=== PATIENT | male | born 1980 | race Caucasian/White ===

== ENCOUNTER 2019-05-27 19:16 | Inpatient (IN) | payer MEDICAID ==
[2019-05-27] MEDS ORDERED: AMOXICILLIN TR/POT CLAVULANATE 500-125 MG TAB PO ONE (20:44)
[2019-05-27] MEDS ORDERED: OXYCODONE-ACETAMINOPHEN 5-325 MG TABLET PO ONE (20:50)
[2019-05-27] MEDS ORDERED: AMPICILLIN SOD/SULBACTAM 3 GM VIAL IV ONE (20:53)
--- NOTE | 2019-05-27 20:58 | ER Document Report ---
ED Medical Screen (RME) - General Chief Complaint: Cat Bite Stated Complaint: FOOT INJURY Time Seen by Provider: 05/27/19 20:38 Notes: 38-year-old male presents the emergency department with chief complaint of cat bite on his right foot that occurred on Tuesday. He said he does only cat but it is a rescue cat and the cat has been mingling with strays as of late. The cat was startled and attacked patient and patient was bit twice, one over the anterior lateral aspect of the right foot just dorsal to the lateral malleolus and another one just posterior to the lateral malleolus. Patient also has significant scratches all over his foot. There is significant erythema and his foot is swollen and his calf is swollen as well. Patient is concerned because the swelling in the calf started today. Patient has a temperature of 100.9 and has been persistently tachycardic at 102-104. Patient is able to move his foot but with great difficulty. EXAM: Overall well-appearing does not seem toxic. Right foot with edema that extends to just below the knee, significant redness around the area of the puncture wounds and warm to the touch. There are several healing scratches all over his right foot and on his bilateral calves. I have greeted and performed a rapid initial assessment of this patient. A comprehensive ED assessment and evaluation of the patient, analysis of test results and completion of medical decision making process will be conducted by an additional ED providers. TRAVEL OUTSIDE OF THE [place] IN LAST 30 DAYS: No - Related Data Allergies/Adverse Reactions: No Known Allergies Allergy (Verified 01/03/16 13:56) Past Medical History - Social History Frequency of alcohol use: None Drug Abuse: None - Past Medical History Cardiac Medical History: Reports: Hx Hypertension Endocrine Medical History: Reports: Hx Diabetes Mellitus Type 2. Denies: Hx Diabetes Mellitus Type 1 Renal/ Medical History: Denies: Hx Peritoneal Dialysis Musculoskeltal Medical History: Reports Hx Musculoskeletal Trauma Past Surgical History: Reports: Hx Adenoidectomy, Hx Orthopedic Surgery - carpal tunel, Hx Tonsillectomy - T&A - Immunizations Immunizations up to date: Yes Hx Diphtheria, Pertussis, Tetanus Vaccination: Yes - 08/07/2012 Physical Exam - Vital signs Vitals: Temp Pulse Resp BP Pulse Ox 98.2 F 102 H 18 153/93 H 100 05/27/19 19:21 05/27/19 19:21 05/27/19 19:21 05/27/19 19:21 05/27/19 19:21 Course - Vital Signs Vital signs: Temp Pulse Resp BP Pulse Ox 98.2 F 102 H 18 153/93 H 100 05/27/19 19:21 05/27/19 19:21 05/27/19 19:21 05/27/19 19:21 05/27/19 19:21
[2019-05-27] MEDS ORDERED: MORPHINE SULFATE 10 MG/ML INJ ONE (21:19)
[2019-05-27 21:23] LABS: ABSOLUTE BASOPHILS # (AUTO) 0.2 10^3/uL (0.0-0.2); ABSOLUTE EOSINOPHILS # (AUTO) 0.2 10^3/uL (0.0-0.6); ABSOLUTE LYMPHOCYTES (AUTO) 4.6 10^3/uL (0.5-4.7); ABSOLUTE MONOCYTES (AUTO) 0.8 10^3/uL (0.1-1.4); ABSOLUTE NEUT (AUTO) 7.6 10^3/uL (1.7-8.2); BASOPHILS % (AUTO) 1.2 % (0-2); EOSINOPHILS % (AUTO) 1.5 % (0-6); HEMATOCRIT 45.6 % (37.9-51.0); HEMOGLOBIN 15.2 g/dL (13.5-17.0); LYMPHOCYTES % (AUTO) 34.8 % (13-45); MEAN CORPUSCULAR HEMOGLOBIN 27.8 pg (27.0-33.4); MEAN CORPUSCULAR HGB CONC 33.4 g/dL (32.0-36.0); MEAN CORPUSCULAR VOLUME 83 fl (80-97); MONOCYTES % (AUTO) 5.7 % (3-13); PLATELET COUNT 297 10^3/uL (150-450); RED BLOOD COUNT 5.47 10^6/uL (4.35-5.55); RED CELL DISTRIBUTION WIDTH 13.2 % (11.5-14.0); SEGMENTED NEUTROPHILS % (AUTO) 56.8 % (42-78); TOTAL CELLS COUNTED % (AUTO) 100 %; WHITE BLOOD COUNT 13.3 10^3/uL (4.0-10.5)
--- NOTE | 2019-05-27 22:07 | ER Document Report ---
ED Animal Bite - General Chief Complaint: Cat Bite Stated Complaint: FOOT INJURY Time Seen by Provider: 05/27/19 20:38 Notes: Patient is a 38-year-old male that comes to the emergency department for chief complaint of right foot pain and swelling after a cat bite that occurred on Tuesday, he states he cleaned the area, initially he did not notice any abnormality but over the past day he has had significant increase in swelling, redness, and pain. He states he felt feverish but he has not had a recorded fever. He states that he was trying to keep his cat from leaving the room by holding his foot in front of the cat when the cat jumped on his foot, bit, and scratched his foot. He states that This is personal pet and up-to-date on [employer]. Patient states his tetanus is up-to-date within 5 years. He denies any daily medications or diagnosed medical problems. TRAVEL OUTSIDE OF THE [place] IN LAST 30 DAYS: No - Related Data Allergies/Adverse Reactions: No Known Allergies Allergy (Verified 01/03/16 13:56) Past Medical History - General Information source: Patient - Social History Smoking Status: Never Smoker Frequency of alcohol use: None Drug Abuse: None Lives with: Family Family History: Reviewed & Not Pertinent, Malignancy, Thyroid Disfunction Patient has suicidal ideation: No Patient has homicidal ideation: No - Past Medical History Cardiac Medical History: Reports: Hx Hypertension Endocrine Medical History: Denies: Hx Diabetes Mellitus Type 1 Renal/ Medical History: Denies: Hx Peritoneal Dialysis Musculoskeletal Medical History: Reports Hx Musculoskeletal Trauma Past Surgical History: Reports: Hx Adenoidectomy, Hx Orthopedic Surgery - carpal tunel, Hx Tonsillectomy - T&A - Immunizations Immunizations up to date: Yes Hx Diphtheria, Pertussis, Tetanus Vaccination: Yes - 08/07/2012 Review of Systems - Review of Systems Constitutional: See HPI EENT: No symptoms reported Cardiovascular: No symptoms reported Respiratory: No symptoms reported Gastrointestinal: No symptoms reported Genitourinary: No symptoms reported Male Genitourinary: No symptoms reported Musculoskeletal: See HPI Skin: See HPI Hematologic/Lymphatic: No symptoms reported Neurological/Psychological: No symptoms reported Physical Exam - Vital signs Vitals: Temp Pulse Resp BP Pulse Ox 98.2 F 102 H 18 153/93 H 100 05/27/19 19:21 05/27/19 19:21 05/27/19 19:21 05/27/19 19:21 05/27/19 19:21 - Notes Notes: GENERAL: Alert, interacts well. No acute distress. HEAD: Normocephalic, atraumatic. EYES: Pupils equal, round, and reactive to light. Extraocular movements intact. ENT: Oral mucosa moist, tongue midline. Oropharynx unremarkable. Airway patent. LUNGS: Clear to auscultation bilaterally, no wheezes, rales, or rhonchi. No respiratory distress. HEART: Regular rate and rhythm. No murmur ABDOMEN: Soft, non-tender. Non-distended. GENITOURINARY: Deferred EXTREMITIES: Right lower extremity with soft tissue swelling over the dorsum of the foot and lateral aspect of the foot with erythema, tenderness, and swelling that extends up to the ankle and almost to the mid leg. There are multiple old scratches over the legs, there are multiple newer puncture schilling over the dorsum of the foot and ankle, there are also multiple newer scratch schilling over the right ankle and foot. No purulent areas noted, no induration or fluctuance noted. Capillary refill and sensation are intact. Range of motion of the ankle is painful but intact. Extremity exam otherwise unremarkable. BACK: no cervical, thoracic, lumbar midline tenderness. No saddle anesthesia, normal distal neurovascular exam. Moves all extremities in full range of motion. NEUROLOGICAL: Alert and oriented x3. Normal speech. Cranial nerves II through XII grossly intact. PSYCH: Normal affect, normal mood. SKIN: Warm, dry, normal turgor. No rashes or lesions noted. Course - Re-evaluation Re-evalutation: Patient is exam is concerning with a large amount of swelling, redness, and evidence of infection from the cat bite wounds. Patient has reported fevers at home, not recorded here. Mild leukocytosis without shift. Chemistry hemolyzed multiple times, finally obtained, shows hyperglycemia without acidosis. Patient does not have a diagnosis of diabetes, he probably has undiagnosed type 2 diabetes. Patient given Unasyn. Because of the extent of the swelling and the infection from the cat bite (along with reported fevers at home today) I discussed with patient and recommended admission for IV antibiotics. Discussed with Dr. Tucker. Discussed with Dr. Conte, hospitalist, patient will be admitted to the medical floor full admission. Patient states understanding and agreement. - Vital Signs Vital signs: Temp Pulse Resp BP Pulse Ox 98.1 F 116 H 16 140/101 H 95 05/27/19 22:09 05/28/19 02:04 05/28/19 02:04 05/28/19 02:12 05/28/19 02:04 - Laboratory Result Diagrams: 05/28/19 04:26 05/27/19 23:53 Laboratory results interpreted by me: 05/27/19 05/27/19 05/27/19 21:02 21:02 23:53 WBC 13.3 H Sodium 136.9 L Glucose 238 H Hemoglobin A1c % 10.9 H Discharge - Discharge Clinical Impression: Hyperglycemia Cat bite of foot Qualifiers: Encounter type: initial encounter Laterality: right Qualified Code(s): S91.351A - Open bite, right foot, initial encounter Cellulitis Qualifiers: Site of cellulitis: extremity Site of cellulitis of extremity: lower extremity Laterality: right Qualified Code(s): L03.115 - Cellulitis of right lower limb Condition: Stable Disposition: ADMITTED INPATIENT Admitting Provider: Dg (Hospitalist) Unit Admitted: Medical Floor
--- NOTE | 2019-05-27 23:03 | RADIOLOGY REPORT (SQ) ---
EXAM DESCRIPTION: XR RIGHT FOOT 2 VIEWS, XR RIGHT ANKLE 2 VIEWS COMPLETED DATE/TME: 05/27/2019 22:02 CLINICAL HISTORY: 38 years, Male, cat bite; foreign body? COMPARISON: None. NUMBER OF VIEWS: TECHNIQUE: LIMITATIONS: None. FINDINGS: There is lateral soft tissue swelling. No evidence of radiopaque foreign body within the soft tissues. No acute fracture or dislocation. There is a possible old fracture of the distal fibula. There is an enthesophyte at the insertion of the Achilles tendon on the calcaneus. Mineralization of bone appears normal. IMPRESSION: Lateral soft tissue swelling. No fracture or radiopaque foreign body. copyright 2010 [employer]- All Rights Reserved
--- NOTE | 2019-05-27 23:03 | RADIOLOGY REPORT (SQ) ---
EXAM DESCRIPTION: XR RIGHT FOOT 2 VIEWS, XR RIGHT ANKLE 2 VIEWS COMPLETED DATE/TME: 05/27/2019 22:02 CLINICAL HISTORY: 38 years, Male, cat bite; foreign body? COMPARISON: None. NUMBER OF VIEWS: TECHNIQUE: LIMITATIONS: None. FINDINGS: There is lateral soft tissue swelling. No evidence of radiopaque foreign body within the soft tissues. No acute fracture or dislocation. There is a possible old fracture of the distal fibula. There is an enthesophyte at the insertion of the Achilles tendon on the calcaneus. Mineralization of bone appears normal. IMPRESSION: Lateral soft tissue swelling. No fracture or radiopaque foreign body. copyright 2010 [employer]- All Rights Reserved
[2019-05-27] MEDS ORDERED: ONDANSETRON HCL INJ/PF 4 MG/2 ML SDV IV ONE (23:20)
[2019-05-27] MEDS ORDERED: MORPHINE SULFATE 10 MG/ML INJ IV ONE (23:20)
[2019-05-28 00:19] LABS: ALANINE AMINOTRANSFERASE 29 U/L (21-72); ALBUMIN 4.1 g/dL (3.5-5.0); ALKALINE PHOSPHATASE 60 U/L (38-126); ANION GAP 7 (5-19); ASPARTATE AMINO TRANSFERASE 28 U/L (17-59); BILIRUBIN,DIRECT 0.2 mg/dL (0.0-0.4); BILIRUBIN,TOTAL 0.4 mg/dL (0.2-1.3); BLOOD UREA NITROGEN 14 mg/dL (7-20); CARBON DIOXIDE 30 mmol/L (22-30); CHLORIDE 100 mmol/L (98-107); GLUCOSE 238 mg/dL (75-110); POTASSIUM 4.2 mmol/L (3.6-5.0); SODIUM 136.9 mmol/L (137-145); TOTAL PROTEIN 7.5 g/dL (6.3-8.2)
[2019-05-28] MEDS ORDERED: DEXTROSE 40% GEL 15 GM TUBE PO PRN ×2 (01:04)
[2019-05-28] MEDS ORDERED: MAGNESIUM HYDROXIDE SUSP 30 ML UDCUP PO PRN (01:04)
[2019-05-28] MEDS ORDERED: GLUCAGON,HUMAN RECOMB 1 MG INJ IM PRN (01:04)
[2019-05-28] MEDS ORDERED: IPRATROPIUM/ALBUTEROL 0.5-2.5 MG/3 ML AMPUL NEB PRN (01:04)
[2019-05-28] MEDS ORDERED: DEXTROSE 50%-WATER 25 GM/50 ML DISP.SYRIN IV PRN ×2 (01:04)
[2019-05-28] MEDS ORDERED: MAG HYDROX/AL HYDROX/SIMETH SUSP 30 ML UDCUP PO PRN (01:04)
[2019-05-28] MEDS ORDERED: ACETAMINOPHEN 325 MG TABLET PO PRN (01:04)
[2019-05-28] MEDS ORDERED: KETOROLAC TROMETHAMINE INJ/PF 30 MG/1 ML SDV IV PRN (01:04)
[2019-05-28] MEDS ORDERED: AMPICILLIN SOD/SULBACTAM 3 GM VIAL IV PRN (01:38)
[2019-05-28] MEDS: NORMAL SALINE 1000 ML 1,000 ML IV PRN ×2 (01:52→04:19)
[2019-05-28] MEDS: MORPHINE SULFATE 10 MG/ML INJ IV PRN ×3 (03:13→14:52)
[2019-05-28] MEDS ORDERED: AMPICILLIN SOD/SULBACTAM 3 GM VIAL ONE (04:02)
[2019-05-28] MEDS: AMPICILLIN SODIUM/SULBACTAM NA 3 GM in NORMAL SALINE 100 ML IV SCH ×2 (04:19→17:10)
[2019-05-28 05:13] LABS: ABSOLUTE BASOPHILS # (AUTO) 0.1 10^3/uL (0.0-0.2); ABSOLUTE EOSINOPHILS # (AUTO) 0.2 10^3/uL (0.0-0.6); ABSOLUTE LYMPHOCYTES (AUTO) 4.4 10^3/uL (0.5-4.7); ABSOLUTE MONOCYTES (AUTO) 0.7 10^3/uL (0.1-1.4); ABSOLUTE NEUT (AUTO) 5.5 10^3/uL (1.7-8.2); BASOPHILS % (AUTO) 0.7 % (0-2); EOSINOPHILS % (AUTO) 2.2 % (0-6); HEMATOCRIT 41.4 % (37.9-51.0); HEMOGLOBIN 13.7 g/dL (13.5-17.0); LYMPHOCYTES % (AUTO) 40.5 % (13-45); MEAN CORPUSCULAR HEMOGLOBIN 27.7 pg (27.0-33.4); MEAN CORPUSCULAR HGB CONC 33.1 g/dL (32.0-36.0); MEAN CORPUSCULAR VOLUME 84 fl (80-97); PLATELET COUNT 260 10^3/uL (150-450); RED BLOOD COUNT 4.95 10^6/uL (4.35-5.55); RED CELL DISTRIBUTION WIDTH 13.1 % (11.5-14.0); SEGMENTED NEUTROPHILS % (AUTO) 50.6 % (42-78); TOTAL CELLS COUNTED % (AUTO) 100 %; WHITE BLOOD COUNT 10.9 10^3/uL (4.0-10.5)
[2019-05-28] MEDS: HEPARIN SOD (PORCINE) 5,000 UNIT/ML 1 ML VIAL SUBCUT SCH ×2 (05:40→14:15)
[2019-05-28] MEDS ORDERED: METFORMIN HCL 500 MG TABLET PO ONE ×2 (06:14→10:00)
--- NOTE | 2019-05-28 06:22 | PDOC H&P ---
History of Present Illness Admission Date/PCP: 05/28/19 01:13 JULIA LUNDY PA-C Patient complains of: Cat bite with right leg pain and swelling History of Present Illness: XENIA DELACRUZ JR is a 38 year old male without significant past medical history who presents with 5 days of swelling, erythema and pain to his right foot, ankle and lower leg following cat bite and scratch. In the emergency room he is found to have leukocytosis and hyperglycemia concerning for diabetes and referred to the hospitalist for admission. Patient admits to recent weight loss . Past Medical History Cardiac Medical History: Reports: Hypertension Endocrine Medical History: Denies: Diabetes Mellitus Type 1 Past Surgical History Past Surgical History: Reports: Orthopedic Surgery - carpal tunel, Tonsillectomy - T&A Social History Information Source: Patient Lives with: Family Smoking Status: Never Smoker Frequency of Alcohol Use: None Hx Recreational Drug Use: No Drugs: None Hx Prescription Drug Abuse: No - Advance Directive Resuscitation Status: Full Code Family History Family History: Malignancy, Thyroid Disfunction Parental Family History Reviewed: Yes Children Family History Reviewed: Yes Sibling(s) Family History Reviewed.: Yes Medication/Allergy Home Medications: Cetirizine HCl [Zyrtec] 10 mg PO DAILY #30 capsule 02/22/15 Oxycodone HCl/Acetaminophen [Percocet 5-325 mg Tablet] 1 - 2 tab PO Q4H PRN #8 tablet 02/22/15 Cyclobenzaprine HCl [Flexeril 10 Mg Tablet] 10 mg PO TID #15 tablet 01/03/16 Oxycodone HCl/Acetaminophen [Percocet 5-325 mg Tablet] 1 - 2 tab PO ASDIR PRN #20 tablet 01/03/16 Allergies/Adverse Reactions: No Known Allergies Allergy (Verified 01/03/16 13:56) Review of Systems Constitutional: PRESENT: as per HPI, fatigue, weight loss Eyes: ABSENT: visual disturbances Ears: ABSENT: hearing changes Cardiovascular: ABSENT: chest pain, dyspnea on exertion, edema, orthropnea, palpitations Respiratory: ABSENT: cough, hemoptysis Gastrointestinal: PRESENT: as per HPI, bloating, nausea Musculoskeletal: PRESENT: as per HPI Integumentary: PRESENT: as per HPI Endocrine: PRESENT: as per HPI, polydipsia, polyphagia, polyuria Hematologic/Lymphatic: ABSENT: easy bleeding, easy bruising Physical Exam Vital Signs: Temp Pulse Resp BP Pulse Ox 98.1 F 116 H 16 140/101 H 95 05/27/19 22:09 05/28/19 02:04 05/28/19 02:04 05/28/19 02:12 05/28/19 02:04 Intake & Output 05/26/19 05/27/19 05/28/19 11:59 11:59 11:59 Intake Total 713 Balance 713 Weight 103.3 kg General appearance: PRESENT: cooperative, mild distress, obese, well-developed, well-nourished Head exam: PRESENT: atraumatic, normocephalic Eye exam: PRESENT: conjunctiva pink, EOMI, PERRLA. ABSENT: scleral icterus Ear exam: PRESENT: normal external ear exam Mouth exam: PRESENT: moist, tongue midline Neck exam: ABSENT: carotid bruit, JVD, lymphadenopathy, thyromegaly Respiratory exam: PRESENT: clear to auscultation bethany. ABSENT: rales, rhonchi, wheezes Cardiovascular exam: PRESENT: RRR. ABSENT: diastolic murmur, rubs, systolic murmur Pulses: PRESENT: normal dorsalis pedis pul Vascular exam: PRESENT: normal capillary refill GI/Abdominal exam: PRESENT: normal bowel sounds, soft. ABSENT: distended, guard ing, mass, organolmegaly, rebound, tenderness Rectal exam: PRESENT: deferred Extremities exam: PRESENT: joint swelling - Right ankle, tenderness, +1 edema, other - Widespread erythema and edema, multiple superficial lacerations and puncture wounds to the right lower leg and ankle without exudate. Neurological exam: PRESENT: alert Psychiatric exam: PRESENT: appropriate affect, normal mood. ABSENT: homicidal ideation, suicidal ideation Skin exam: PRESENT: abrasion, erythema, other - Widespread erythema and edema, multiple superficial lacerations and puncture wounds to the right lower leg and ankle without exudate. Results Laboratory Results: 05/28/19 04:26 05/27/19 23:53 05/27/19 05/27/19 05/27/19 21:02 21:02 21:43 WBC 13.3 H RBC 5.47 Hgb 15.2 Hct 45.6 MCV 83 MCH 27.8 MCHC 33.4 RDW 13.2 Plt Count 297 Seg Neutrophils % 56.8 Lymphocytes % 34.8 Monocytes % 5.7 Eosinophils % 1.5 Basophils % 1.2 Absolute Neutrophils 7.6 Absolute Lymphocytes 4.6 Absolute Monocytes 0.8 Absolute Eosinophils 0.2 Absolute Basophils 0.2 Sodium Cancelled Cancelled Potassium Cancelled Cancelled Chloride Cancelled Cancelled Carbon Dioxide Cancelled Cancelled Anion Gap Cancelled Cancelled BUN Cancelled Cancelled Creatinine Cancelled Cancelled Est GFR ( Amer) Cancelled Cancelled Est GFR (Non-Af Amer) Cancelled Cancelled Glucose Cancelled Cancelled Calcium Cancelled Cancelled Total Bilirubin Cancelled Cancelled AST Cancelled Cancelled ALT Cancelled Cancelled Alkaline Phosphatase Cancelled Cancelled Total Protein Cancelled Cancelled Albumin Cancelled Cancelled 05/27/19 05/27/19 05/28/19 22:41 23:53 04:26 WBC 10.9 H RBC 4.95 Hgb 13.7 Hct 41.4 MCV 84 MCH 27.7 MCHC 33.1 RDW 13.1 Plt Count 260 Seg Neutrophils % 50.6 Lymphocytes % 40.5 Monocytes % 6.0 Eosinophils % 2.2 Basophils % 0.7 Absolute Neutrophils 5.5 Absolute Lymphocytes 4.4 Absolute Monocytes 0.7 Absolute Eosinophils 0.2 Absolute Basophils 0.1 Sodium Cancelled 136.9 L Potassium Cancelled 4.2 Chloride Cancelled 100 Carbon Dioxide Cancelled 30 Anion Gap Cancelled 7 BUN Cancelled 14 Creatinine Cancelled 0.55 Est GFR ( Amer) Cancelled > 60 Est GFR (Non-Af Amer) Cancelled > 60 Glucose Cancelled 238 H Calcium Cancelled 10.0 Total Bilirubin Cancelled 0.4 AST Cancelled 28 ALT Cancelled 29 Alkaline Phosphatase Cancelled 60 Total Protein Cancelled 7.5 Albumin Cancelled 4.1 Impressions: Ankle X-Ray 05/27/19 22:02 IMPRESSION: Lateral soft tissue swelling. No fracture or radiopaque foreign body. copyright 2010 [employer]- All Rights Reserved Foot X-Ray 05/27/19 22:02 IMPRESSION: Lateral soft tissue swelling. No fracture or radiopaque foreign body. copyright 2010 [employer]- All Rights Reserved Assessment and Plan - Diagnosis (1) Cat bite of foot Qualifiers: Encounter type: initial encounter Laterality: right Qualified Code(s): S91.351A - Open bite, right foot, initial encounter; W55.01XA - Bitten by cat, initial encounter Is this a current diagnosis for this admission?: Yes Plan: IV Unasyn, elevation and symptomatic management (2) Diabetes Is this a current diagnosis for this admission?: Yes Plan: New diagnosis of diabetes, insulin 70/30 initiated, Humalog sliding scale, education, follow-up A1c (3) Cellulitis Qualifiers: Site of cellulitis: extremity Site of cellulitis of extremity: lower extremity Laterality: right Qualified Code(s): L03.115 - Cellulitis of right lower limb Is this a current diagnosis for this admission?: Yes Plan: Please see #1 - Time Time Spent with patient: 25-34 minutes - Inpatient Certification Medical Necessity: Need Close Monitoring Due to Risk of Patient Decompensation
[2019-05-28] MEDS ORDERED: INSULIN LISPRO 100 UNIT/ML 3 ML VIAL SUBCUT SCH ×2 (08:00→11:00)
[2019-05-28] MEDS ORDERED: HUM INSULIN NPH/REG INSULIN HM 100 UNIT/1 ML 3 ML SUBCUT SCH (08:00)
[2019-05-28] MEDS ORDERED: DOCUSATE SODIUM 100 MG CAPSULE PO SCH (10:00)
[2019-05-28] MEDS ORDERED: AMPICILLIN SODIUM/SULBACTAM NA 3 GM in NORMAL SALINE 100 ML IV SCH (12:00)
[2019-05-28 15:11] VITALS: BP 132/78
[2019-05-28] MEDS ORDERED: METFORMIN HCL 500 MG TABLET PO SCH (16:00)
--- NOTE | 2019-05-28 18:38 | PDOC DISCHARGE SUMMARY ---
General - Admit/Disc Date/PCP Admission Date/Primary Care Provider: 05/28/19 01:13 JULIA LUNDY PA-C Discharge Date: 05/28/19 - Discharge Diagnosis (1) Cat bite of foot Is this a current diagnosis for this admission?: Yes Summary: The patient and his had a new pet cat. They were attempting to isolate the cat in the bathroom. The cat try to get out. The patient stuck his leg into urged the Back from the doorway. He had subsequently jumped on his leg began to scratch and bite until the patient could get the Off of his leg. The patient sustained multiple excoriations and several bites to the right foot, ankle and leg. (2) Cellulitis Is this a current diagnosis for this admission?: Yes Summary: As the days past (he was bitten 5 days ago) he began to notice more swelling, erythema and pain. He did not seek medical attention until yesterday when he presented to the emergency department. He was admitted and given IV antibiotics as well as analgesics. (3) Diabetes Is this a current diagnosis for this admission?: Yes Summary: The patient was not aware of a diagnosis of diabetes. On admission he had an elevated blood glucose of 238. His hemoglobin A1c was 10.9. He was covered with insulin sliding scale last night. I am discharging him on metformin 500 mg twice daily to start. Will arrange for outpatient follow-up with his primary care provider at [facility] later this week. I did not start insulin at discharge since I would not be following the outside of the hospital. - Additional Information Resuscitation Status: Full Code Discharge Diet: Diabetic Discharge Activity: Activity As Tolerated, Other - Elevate right foot when possible Prescriptions: Amox Tr/Potassium Clavulanate [Augmentin 875-125 mg Tablet] 1 tab PO BID #20 tablet Metformin HCl [Glucophage 500 mg Tablet] 500 mg PO BIDACBS 30 Days #60 tablet Oxycodone HCl/Acetaminophen [Percocet 5-325 mg Tablet] 1 tab PO Q6 PRN #10 tab PRN Reason: For Pain Home Medications: Acetaminophen [Tylenol 325 mg Tablet] 650 mg PO Q4HP PRN tablet 05/28/19 Amox Tr/Potassium Clavulanate [Augmentin 875-125 mg Tablet] 1 tab PO BID #20 tablet 05/28/19 Metformin HCl [Glucophage 500 mg Tablet] 500 mg PO BIDACBS 30 Days #60 tablet 05/28/19 Oxycodone HCl/Acetaminophen [Percocet 5-325 mg Tablet] 1 tab PO Q6 PRN #10 tab 05/28/19 History of Present Illness History of Present Illness: XENIA DELACRUZ JR is a 38 year old male Hospital Course Hospital Course: As above Physical Exam Vital Signs: Temp Pulse Resp BP Pulse Ox 98.4 F 77 14 109/61 99 05/28/19 11:04 05/28/19 11:04 05/28/19 11:04 05/28/19 11:04 05/28/19 11:04 Intake & Output 05/27/19 05/28/19 05/29/19 06:59 06:59 06:59 Intake Total 713 100 Balance 713 100 Weight 103.3 kg General appearance: PRESENT: cooperative, mild distress, well-developed Head exam: PRESENT: atraumatic, normocephalic Respiratory exam: PRESENT: clear to auscultation bethany, symmetrical, unlabored. ABSENT: rales, rhonchi, tachypnea, wheezes Cardiovascular exam: PRESENT: RRR, +S1, +S2 GI/Abdominal exam: PRESENT: normal bowel sounds, soft. ABSENT: distended, tenderness Musculoskeletal exam: PRESENT: other - The right foot and ankle are still swollen. There are patchy areas of erythema. The patient has multiple scabs on the leg as well as the ankle and foot area from cat scratches. I could not express any purulent drainage from any of the lesions on the foot. The patient is still quite tender but he does have range of motion. He can bear some weight with some discomfort. Neurological exam: PRESENT: alert, awake, oriented to person, oriented to place, oriented to time, oriented to situation, CN II-XII grossly intact Psychiatric exam: PRESENT: appropriate affect. ABSENT: agitated, anxious Skin exam: PRESENT: erythema - As above, warm Results Laboratory Results: 05/28/19 04:26 05/27/19 23:53 05/27/19 05/27/19 05/27/19 21:02 21:02 21:43 WBC 13.3 H RBC 5.47 Hgb 15.2 Hct 45.6 MCV 83 MCH 27.8 MCHC 33.4 RDW 13.2 Plt Count 297 Seg Neutrophils % 56.8 Lymphocytes % 34.8 Monocytes % 5.7 Eosinophils % 1.5 Basophils % 1.2 Absolute Neutrophils 7.6 Absolute Lymphocytes 4.6 Absolute Monocytes 0.8 Absolute Eosinophils 0.2 Absolute Basophils 0.2 Sodium Cancelled Cancelled Potassium Cancelled Cancelled Chloride Cancelled Cancelled Carbon Dioxide Cancelled Cancelled Anion Gap Cancelled Cancelled BUN Cancelled Cancelled Creatinine Cancelled Cancelled Est GFR ( Amer) Cancelled Cancelled Est GFR (Non-Af Amer) Cancelled Cancelled Glucose Cancelled Cancelled Calcium Cancelled Cancelled Total Bilirubin Cancelled Cancelled AST Cancelled Cancelled ALT Cancelled Cancelled Alkaline Phosphatase Cancelled Cancelled Total Protein Cancelled Cancelled Albumin Cancelled Cancelled 05/27/19 05/27/19 05/28/19 22:41 23:53 04:26 WBC 10.9 H RBC 4.95 Hgb 13.7 Hct 41.4 MCV 84 MCH 27.7 MCHC 33.1 RDW 13.1 Plt Count 260 Seg Neutrophils % 50.6 Lymphocytes % 40.5 Monocytes % 6.0 Eosinophils % 2.2 Basophils % 0.7 Absolute Neutrophils 5.5 Absolute Lymphocytes 4.4 Absolute Monocytes 0.7 Absolute Eosinophils 0.2 Absolute Basophils 0.1 Sodium Cancelled 136.9 L Potassium Cancelled 4.2 Chloride Cancelled 100 Carbon Dioxide Cancelled 30 Anion Gap Cancelled 7 BUN Cancelled 14 Creatinine Cancelled 0.55 Est GFR ( Amer) Cancelled > 60 Est GFR (Non-Af Amer) Cancelled > 60 Glucose Cancelled 238 H Calcium Cancelled 10.0 Total Bilirubin Cancelled 0.4 AST Cancelled 28 ALT Cancelled 29 Alkaline Phosphatase Cancelled 60 Total Protein Cancelled 7.5 Albumin Cancelled 4.1 Impressions: Ankle X-Ray 05/27/19 22:02 IMPRESSION: Lateral soft tissue swelling. No fracture or radiopaque foreign body. copyright 2010 [employer]- All Rights Reserved Foot X-Ray 05/27/19 22:02 IMPRESSION: Lateral soft tissue swelling. No fracture or radiopaque foreign body. copyright 2011 [employer]- All Rights Reserved Qualifiers - * PATIENT BEING DISCHARGED WITH ANY OF THE FOLLOWING DIAGNOSIS: No Acute Heart Failure - Is this a Heart Failure Patient?: No Plan Time Spent: Greater than 30 Minutes
== END 2019-05-28 17:25 | disposition home or self-care (01) | DRG 638 ==
LOC: ER 19:16 → EH 05-28 01:13 → 5 05-28 02:25
PROVIDERS: ADMIT Internal Medicine; ATTEND Internal Medicine
DX: E11.9 Type 2 diabetes mellitus without complications (principal); L03.115 Cellulitis of right lower limb; S90.871A Other superficial bite of right foot, initial encounter; W55.01XA Bitten by cat, initial encounter; I10 Essential (primary) hypertension; E11.65 Type 2 diabetes mellitus with hyperglycemia
CPT/HCPCS: 36415; 80053; 82962; 83036; 85025; 87040; 99284; J0295; J1815; J2270; J2405; J7030; J7050